=== PATIENT | female | born 1945 | race Caucasian/White ===

== ENCOUNTER → 2021-06-26 | Outpatient (CLI) | payer OTHER ==
[~2021-06-26] MED LIST: AMLO5 PO; ATOR20 PO; ATORVASTATIN CA20 MG PO; AVALIDE; Anastrozole1 GM PO; CALCIUM 500 +1 EAC4 PO; CHOL10002 PO; CO Q10200 MG PO; CODBUTACEC PO; Calcium 500 MG1 EACH PO; Coenzyme Q10400 MG PO; GLUCOSAMINE CH1 EAC3 PO; GLUCOSAMINE-CH1 EA10 PO; LOSA25; LOSARTAN-HCTZ1 EAC2 PO; LOSHYD PO; LOSHYD100 PO; PAN-C 500 TABL1 EACH PO; PRAV10 PO; TESTOSTERONE PRO TOP; TESTOSTERONE60 GM TD; TRICOR; VITAMIN D32000 UNIT PO; Vitamin C100 M1 PO; Vitamin C1000 M1 PO; Vitamin D400 UNI1 PO; ZOLEDRONIC ACID
== END | disposition home or self-care (01) ==
LOC: LAB SHORT 15:12 → LAB 15:12
DX: D48.5 Neoplasm of uncertain behavior of skin (principal)
CPT/HCPCS: 88305

== ENCOUNTER → 2021-12-05 | Outpatient (CLI) | payer OTHER | END | disposition home or self-care (01) | LOC: LAB SHORT 09:45 → LAB 09:45 | DX: R30.0 Dysuria (principal) | CPT/HCPCS: 87077; 87086; 87186 ==

== ENCOUNTER → 2023-01-16 | Outpatient (CLI) | payer OTHER | LOC: PLD 15:19 → LAB 15:19 → LAB SHORT 15:19 | DX: L90.5 Scar conditions and fibrosis of skin (principal) | CPT/HCPCS: 88305 ==